=== PATIENT | female | born 1975 | race Caucasian/White ===

== ENCOUNTER 2019-01-27 08:40 | Emergency (ER) | payer BC, MEDICAID ==
[~2019-01-27] VITALS: Ht 157.5 cm; Wt 70.3 kg
[2019-01-27 08:44] VITALS: Ht 157.5 cm; Wt 70.3 kg
[2019-01-27 09:55] LABS: BASOPHIL % 0.3 % (0-2); PLATELET COUNT 195 x10^3mcL (130-400); RED CELL DISTRIBUTION WIDTH 13.5 % (11.5-14.5)
[2019-01-27 10:36] VITALS: BP 140/93
== END 2019-01-27 10:36 | disposition short-term general hospital (02) ==
LOC: ED 08:40
PROVIDERS: Emergency Medicine
DX: O80 Encounter for full-term uncomplicated delivery (principal); J45.909 Unspecified asthma, uncomplicated; Z3A.38 38 weeks gestation of pregnancy; Z88.0 Allergy status to penicillin; Z88.5 Allergy status to narcotic agent; Z37.0 Single live birth
CPT/HCPCS: 82962; J7030